=== PATIENT | female | born 1945 | race Caucasian/White ===

== ENCOUNTER 2016-05-30 11:59 | Outpatient (CLI) | payer MEDICARE | END 2016-05-30 12:00 | disposition home or self-care (01) | DX: N30.00 Acute cystitis without hematuria (principal) ==

== ENCOUNTER 2016-06-10 10:40 | Outpatient (CLI) | payer MEDICARE | END 2016-06-10 10:41 | disposition home or self-care (01) | DX: I10 Essential (primary) hypertension (principal); Z79.899 Other long term (current) drug therapy; C18.9 Malignant neoplasm of colon, unspecified; E78.2 Mixed hyperlipidemia ==

== ENCOUNTER 2016-06-14 11:52 | Outpatient (CLI) | payer MEDICARE | END 2016-06-14 11:53 | disposition home or self-care (01) | DX: R31.9 Hematuria, unspecified (principal) ==

== ENCOUNTER 2016-08-09 10:23 | Outpatient (CLI) | payer MEDICARE | END 2016-08-09 23:59 | DX: R19.7 Diarrhea, unspecified (principal) ==

== ENCOUNTER 2016-08-12 08:00 | Outpatient (CLI) | payer MEDICARE | END 2016-08-12 23:59 | disposition home or self-care (01) | DX: R19.7 Diarrhea, unspecified (principal) ==

== ENCOUNTER 2017-06-20 08:07 | Outpatient (CLI) | payer MEDICARE ==
[2017-06-20 13:58] LABS: BASOPHILS % (AUTO) 0.8 %; EOSINOPHILS # (AUTO) 0.1 10^3/uL (0.0-0.7); EOSINOPHILS % (AUTO) 2.5 %; HGB - HEMOGLOBIN 13.3 g/dL (12.0-16.0); LYMPHOCYTES # (AUTO) 1.2 10^3/uL (1.5-3.5); LYMPHOCYTES % (AUTO) 26.7 %; MEAN CORPUSCULAR HEMOGLOBIN 30.6 pg (27.0-31.0); MEAN CORPUSCULAR HGB CONC 33.3 g/dL (32.0-36.0); MEAN CORPUSCULAR VOLUME 91.8 fL (81.0-99.0); MEAN PLATELET VOLUME 8.5 fL (7.9-10.8); MONOCYTES # (AUTO) 0.4 10^3/uL (0.0-1.0); MONOCYTES % (AUTO) 9.7 %; NEUTROPHILS # (AUTO) 2.7 10^3/uL (1.5-6.6); NEUTROPHILS % (AUTO) 60.3 %; PLT - PLATELET COUNT 293 10^3/uL (130-450); RED BLOOD COUNT 4.34 10^6/uL (4.20-5.40); RED CELL DISTRIBUTION WIDTH 13.7 % (12.0-15.0); WHITE BLOOD COUNT 4.5 x10^3/uL (4.8-10.8)
[2017-06-20 14:13] LABS: ALBUMIN 4.2 g/dL (3.2-5.5); ALBUMIN/GLOBULIN RATIO 1.3 (1.0-2.2); ALKALINE PHOSPHATASE 40 IU/L (42-121); ALT ALANINE AMINOTRANSFERASE 23 IU/L (10-60); AST ASPARTATE AMINOTRANSFERASE 21 IU/L (10-42); BILIRUBIN,TOTAL 0.6 mg/dL (0.2-1.0); BUN - BLOOD UREA NITROGEN 15 mg/dL (6-20); CALCIUM 9.5 mg/dL (8.5-10.3); CARBON DIOXIDE - CO2 26 mmol/L (21-32); CHLORIDE 105 mmol/L (101-111); CHOLESTEROL 172 mg/dL; CREATININE 0.8 mg/dL (0.4-1.0); GFR - MDRD 71 (>89); GLUCOSE 86 mg/dL (70-100); HDL CHOLESTEROL 84 mg/dL; LDL CHOLESTEROL,CALCULATED 72 mg/dL; LDL/HDL RATIO 0.9 (<4.4); SODIUM 140 mmol/L (135-145); TOTAL PROTEIN 7.4 g/dL (6.7-8.2); VLDL CHOLESTEROL 16 mg/dL
[2017-06-21 15:03] LABS: HEPATITIS C ANTIBODY NON-REACTIVE (NON-REACTIVE)
== END 2017-06-20 08:08 | disposition home or self-care (01) ==
LOC: LAB.R 08:07
PROVIDERS: ATTEND Internal Medicine
DX: G46.4 Cerebellar stroke syndrome (principal); K20.9 Esophagitis, unspecified; C18.9 Malignant neoplasm of colon, unspecified; I10 Essential (primary) hypertension; E78.5 Hyperlipidemia, unspecified; Z79.899 Other long term (current) drug therapy; Z72.89 Other problems related to lifestyle
CPT/HCPCS: 80053; 80061; 82378; 83721; 84443; 85025; 86803

== ENCOUNTER 2017-06-27 11:06 | Outpatient (CLI) | payer MEDICARE ==
--- NOTE | 2017-06-27 18:14 | XRAY Report ---
DATE OF SERVICE: 06/27/2017 RIGHT HIP AND PELVIS: 06/27/2017 CLINICAL INDICATION: Hip pain. FINDINGS: Frontal view of the hips and pelvis and frogleg lateral view of the right hip demonstrate mild osteoarthritis. There is no evidence of fracture or dislocation. No radiopaque foreign body is seen in the soft tissues. IMPRESSION: MILD OSTEOARTHRITIS. TD: 06/27/2017 18:12
--- NOTE | 2017-06-27 18:15 | XRAY Report ---
DATE OF SERVICE: 06/27/2017 THREE VIEW LUMBAR SPINE: 06/27/2017 CLINICAL INDICATION: Hip pain. FINDINGS: AP, lateral, coned down views of the lumbar spine demonstrate moderate degenerative disk and facet disease. Disk space narrowing is worst at L4-L5. There is no evidence of compression fracture. The bowel gas pattern appears normal. IMPRESSION: MODERATE DEGENERATIVE CHANGES. TD: 06/27/2017 18:14
== END 2017-06-27 11:07 | disposition home or self-care (01) ==
LOC: DI 11:06
PROVIDERS: ATTEND Internal Medicine
DX: M16.11 Unilateral primary osteoarthritis, right hip (principal); M51.36 Other intervertebral disc degeneration, lumbar region; M47.896 Other spondylosis, lumbar region
CPT/HCPCS: 72100

== ENCOUNTER 2019-02-21 06:46 | Day surgery (SDC) | payer MEDICARE ==
[2019-02-21] MEDS ORDERED: fentaNYL 250 MCG/5 ML VIAL IVP ONE (06:47)
[2019-02-21] MEDS ORDERED: MIDAZOLAM 2 MG/2 ML VIAL IVP ONE (06:47)
[2019-02-21] MEDS ORDERED: LACTATED RINGERS 1,000 ML IV ONE (07:36)
[2019-02-21 09:40] VITALS: BP 115/68
== END 2019-02-21 06:47 | disposition home or self-care (01) ==
LOC: SDS 06:46
PROVIDERS: ATTEND Surgery
PROC: 0DJD8ZZ Inspection of Lower Intestinal Tract, Via Natural or Artificial Opening Endoscopic (ICD-10-PCS; principal; 2019-02-21 08:15)
DX: Z12.11 Encounter for screening for malignant neoplasm of colon (principal); K57.30 Diverticulosis of large intestine without perforation or abscess without bleeding; K64.8 Other hemorrhoids; Z85.038 Personal history of other malignant neoplasm of large intestine; Z90.49 Acquired absence of other specified parts of digestive tract; I10 Essential (primary) hypertension; E78.5 Hyperlipidemia, unspecified; K20.9 Esophagitis, unspecified; Z86.73 Personal history of transient ischemic attack (TIA), and cerebral infarction without residual deficits; Z79.82 Long term (current) use of aspirin
CPT/HCPCS: G0105; J3010; J7120

== ENCOUNTER 2020-04-05 13:28 | Emergency (ER) | payer MEDICARE ==
--- NOTE | 2020-04-05 13:52 | ED Physician Documentation ---
PD HPI CHEST PAIN - Stated complaint Stated Complaint: FEELS FAINT - Chief complaint Chief Complaint: Cardiac - History obtained from History obtained from: Patient (74-year-old woman Presents with episodic lightheadedness for several days. She says she notices that her blood pressure goes down when she notices it generally with a diastolic in the 50s. She feels lightheaded and weak. Also 3 days ago she had about a 20-minute episode of sharp chest pain radiat) Review of Systems Ten Systems: 10 systems reviewed and negative Constitutional: reports: Fatigue. denies: Fever, Chills Cardiac: reports: Chest pain / pressure, Palpitations. denies: Pedal edema, Calf pain Respiratory: denies: Dyspnea, Cough PD PAST MEDICAL HISTORY - Past Medical History Cardiovascular: Hypertension Respiratory: None Endocrine/Autoimmune: None GI: GERD, Colon polyps, Other : None HEENT: None Psych: None Musculoskeletal: None Derm: None - Past Surgical History General: Cholecystectomy, Bowel surgery, Colonoscopy, EGD HEENT: Tonsil/Adenoidectomy - Present Medications Home Medications: Ambulatory Orders Medication Instructions Recorded Confirmed Aspirin [Aspirin EC] 1 tab ORAL DAILY 02/20/19 02/21/19 lisinopriL [Lisinopril] 10 mg ORAL DAILY 02/20/19 02/21/19 - Allergies Allergies/Adverse Reactions: Allergies Allergy/AdvReac Type Severity Reaction Status Date / Time No Known Drug Allergies Allergy Verified 04/05/20 13:44 PD ED PE NORMAL - Vitals Vital signs reviewed: Yes - General General: Alert and oriented X 3, No acute distress, Well developed/nourished - HEENT HEENT: PERRL, EOMI - Neck Neck: Supple, no meningeal sign, No bony TTP - Cardiac Cardiac: RRR, No murmur - Respiratory Respiratory: No respiratory distress, Clear bilaterally - Abdomen Abdomen: Non tender - Back Back: No CVA TTP, No spinal TTP - Extremities Extremities: No edema, No calf tenderness / cord - Neuro Neuro: Alert and oriented X 3, Normal speech Results - Vitals Vitals: Vital Signs - 24 hr 04/05/20 04/05/20 13:36 13:49 Temperature 36.6 C 36.6 C Heart Rate 63 64 Respiratory 15 14 Rate Blood Pressure 141/78 H 141/78 H O2 Saturation 97 98 Oxygen O2 Source Room air - EKG (time done) 1336 Rate: Rate (enter#) (73) Rhythm: NSR [place]: Normal Intervals: Normal GA QRS: Normal Ischemia: Normal ST segments Computer interpretation: Agree with computer - Labs Labs: Laboratory Tests 04/05/20 04/05/20 04/05/20 14:28 14:28 14:28 WBC 6.9 RBC 4.26 Hgb 13.3 Hct 40.7 MCV 95.5 MCH 31.2 H MCHC 32.7 RDW 12.8 Plt Count 271 MPV 9.6 Neut # (Auto) 5.2 Lymph # (Auto) 1.1 L [place] # (Auto) 0.5 Eos # (Auto) 0.1 Baso # (Auto) 0.0 Absolute Nucleated RBC 0.00 Nucleated RBC % 0.0 Sodium 137 Potassium 4.2 Chloride 103 Carbon Dioxide 24 Anion Gap 10.0 BUN 17 Creatinine 0.8 Estimated GFR (MDRD) 70 L Glucose 89 Calcium 8.9 Magnesium 2.1 Total Bilirubin 0.7 AST 18 ALT 20 Alkaline Phosphatase 39 L Troponin I High Sens 2.9 Total Protein 7.3 Albumin 4.0 Globulin 3.3 Albumin/Globulin Ratio 1.2 Lipase 112 H PD MEDICAL DECISION MAKING - ED course ED course: 74-year-old woman with episodic low blood pressures and lightheadedness, work-up today demonstrates normal EKG, normal chest x-ray. Labs only notable for very mild elevation in lipase. This was discussed with the patient. She has been having epigastric pain daily for a month. We discussed either advanced imaging today or ceasing her lisinopril and following up for recheck and she opted for the latter. Departure - Departure Disposition: 01 Home, Self Care Condition: Good Record reviewed to determine appropriate education?: Yes Instructions: ED Palpitations, ED Near Syncope Unkn Comments: As discussed, the only pertinent positive finding today was a very mildly elevated lipase at 112. Since you have already had your gallbladder out, it is not likely to be from gallstones. This could be from the lisinopril, which may also be causing your lightheadedness. I recommend you stop the lisinopril for now and follow-up with your doctor in about a week. I would recommend that your doctor consider rechecking the lipase level, and if persistently elevated off the lisinopril to consider imaging focusing on the pancreas and/or upper endoscopy. Return if worsening. Given your cardiac complaints, also reasonable to consider echocardiography and Holter monitoring. No abnormal findings on your heart were found today. If unable to get in with your primary care physician in a timely manner, consider going to the [facility] walk-in clinic in [place] for repeat labs: [facility] [address] [address] CLINIC HOURS: Open 7 days a week: Monday - Monday 7:00 am to 5:30 pm Monday 9:00 am to 4:00 pm Sundays Noon to 4:00 pm
--- NOTE | 2020-04-05 14:35 | XRAY Report ---
PROCEDURE: Chest 1 View X-Ray INDICATIONS: Chest Pain TECHNIQUE: One view of the chest was acquired. COMPARISON: 5.27.16 FINDINGS: Surgical changes and devices: None. Lungs and pleura: No pleural effusions or pneumothorax. Lungs are clear. Mediastinum: Mediastinal contours appear normal. Heart size is normal. Bones and chest wall: No suspicious bony lesions. Overlying soft tissues appear unremarkable. IMPRESSION: No acute process. Reviewed by: Bladimir Ahumada MD on 04/05/2020 1:33 PM [facility] Approved by: Bladimir Ahumada MD on 04/05/2020 1:33 PM [facility] Station ID: [id number]
[2020-04-05 14:38] LABS: BASOPHILS % (AUTO) 0.4 %; EOSINOPHILS # (AUTO) 0.1 10^3/uL (0.0-0.7); EOSINOPHILS % (AUTO) 1.4 %; HGB - HEMOGLOBIN 13.3 g/dL (12.0-16.0); LYMPHOCYTES # (AUTO) 1.1 10^3/uL (1.5-3.5); LYMPHOCYTES % (AUTO) 15.2 %; MEAN CORPUSCULAR HEMOGLOBIN 31.2 pg (27.0-31.0); MEAN CORPUSCULAR HGB CONC 32.7 g/dL (32.0-36.0); MEAN CORPUSCULAR VOLUME 95.5 fL (81.0-99.0); MEAN PLATELET VOLUME 9.6 fL (7.9-10.8); MONOCYTES # (AUTO) 0.5 10^3/uL (0.0-1.0); MONOCYTES % (AUTO) 7.5 %; NEUTROPHILS # (AUTO) 5.2 10^3/uL (1.5-6.6); NEUTROPHILS % (AUTO) 75.1 %; PLT - PLATELET COUNT 271 10^3/uL (130-450); RED BLOOD COUNT 4.26 10^6/uL (4.20-5.40); RED CELL DISTRIBUTION WIDTH 12.8 % (12.0-15.0); WHITE BLOOD COUNT 6.9 x10^3/uL (4.8-10.8)
[2020-04-05 14:53] LABS: ALBUMIN/GLOBULIN RATIO 1.2 (1.0-2.2); BILIRUBIN,TOTAL 0.7 mg/dL (0.2-1.0); CALCIUM 8.9 mg/dL (8.5-10.3); CREATININE 0.8 mg/dL (0.4-1.0); MAGNESIUM 2.1 mg/dL (1.7-2.8); TOTAL PROTEIN 7.3 g/dL (6.7-8.2)
[2020-04-05 15:20] VITALS: BP 136/75
== END 2020-04-05 15:28 | disposition home or self-care (01) ==
LOC: ED 13:28
DX: R42 Dizziness and giddiness (principal); I95.89 Other hypotension; R00.2 Palpitations; I10 Essential (primary) hypertension; Z79.82 Long term (current) use of aspirin; R74.8 Abnormal levels of other serum enzymes
CPT/HCPCS: 36415; 71045; 80053; 83690; 83735; 84484; 85025; 93005; 99284

== ENCOUNTER 2020-06-19 13:30 | Outpatient (CLI) | payer MEDICARE ==
--- NOTE | 2020-06-19 16:56 | Ultrasound Report ---
PROCEDURE: Pelvic w/Transvaginal INDICATIONS: ENDOMETRIAL POLYP TECHNIQUE: Real-time scanning was performed of the pelvic organs, with image documentation. Additional endovagi nal scanning was necessary due to incomplete visualization of the adnexal and endometrial structures by transabdominal scanning. COMPARISON: None. FINDINGS: No pathologic free abdominal or pelvic fluid. Uterus: Uterus is normal in size at 7.2 x 3.5 x 4.3 cm. The endometrium measures 12 mm in combined thickness. Mild appearance of heterogeneous vascularity is noted. In addition, there is a 6 x 5 x 6 mm focus of heterogeneous echogenicity at the region of the cervix/lower uterine segment. Ovaries: Right ovary measures 1.1 x 0.9 x 1.4 cm, volume 0.8 cc. Left ovary is not visualized. IMPRESSION: 1. Endometrium is thickened for postmenopausal patient. Further evaluation is recommended, as neoplas m cannot be excluded. 2. Subcentimeter focus of heterogeneous echogenicity within the lower uterine segment/cervix. It is n ot well visualized. This could represent a small polyp or fibroid. However, interval follow-up of thi s region is recommended secondary to poor characterization. If clinical concern persists, MRI may be obtained for further evaluation. Reviewed by: Lovely Adam MD on 06/19/2020 4:55 PM PST Approved by: Lovely Adam MD on 06/19/2020 4:55 PM PST Station ID: [id number]
== END 2020-06-19 13:31 | disposition home or self-care (01) ==
LOC: DI 13:30
PROVIDERS: ATTEND Obstetrics & Gynecology
DX: R93.89 Abnormal findings on diagnostic imaging of other specified body structures (principal)

== ENCOUNTER 2020-07-01 13:17 | Outpatient (CLI) | payer MEDICARE ==
--- NOTE | 2020-07-03 10:45 | Mammography Report ---
BILATERAL DIGITAL SCREENING MAMMOGRAM 3D/2D: 07/01/2020 CLINICAL: Routine screening. Comparison is made to exams dated: 07/25/2016 mammogram, 05/27/2014 mammogram, 05/16/2013 mammogram, and 05/16/2013 mammogram - [facility]. The tissue of both breasts is pred ominantly fatty. There is a biopsy clip in the right breast. There also are biopsy clips in the left breast. No significant masses, calcifications, or other findings are seen in either breast. There has been no significant interval change. IMPRESSION: NEGATIVE There is no mammographic evidence of malignancy. A 1 year screening mammogram is recommended. This exam was interpreted at Station ID: [id number]. NOTE: For mammograms, a report in lay terms will be sent to the patient. Approximately 15% of breast malignancies will not be visualized mammographically. In the management of a palpable breast mass, a negative mammogram must not discourage biopsy of a clinically suspicious lesion. Electronically Signed By: Ady Diana acr/penrad:07/01/2020 15:25:33 ACR BI-RADS Category 1: Negative 3341F PARENCHYMAL PATTERN: (F) - The breast(s) demonstrate(s) diffuse fatty replacement. BI-RADS CATEGORY: (1) - 1 RECOMMENDATION: (ANNUAL) - Recommend routine annual screening mammography. [id number] 1 year screening LATERALITY: (B)
== END 2020-07-01 13:18 | disposition home or self-care (01) ==
LOC: DI 13:17
DX: Z12.31 Encounter for screening mammogram for malignant neoplasm of breast (principal)

== ENCOUNTER 2020-07-20 08:00 | Outpatient (CLI) | payer MEDICARE ==
[2020-07-20 11:17] LABS: BASOPHILS % (AUTO) 0.3 %; EOSINOPHILS # (AUTO) 0.1 10^3/uL (0.0-0.7); HCT - HEMATOCRIT 41.7 % (37.0-47.0); HGB - HEMOGLOBIN 13.2 g/dL (12.0-16.0); LYMPHOCYTES # (AUTO) 1.4 10^3/uL (1.5-3.5); LYMPHOCYTES % (AUTO) 15.4 %; MEAN CORPUSCULAR HEMOGLOBIN 30.1 pg (27.0-31.0); MEAN CORPUSCULAR HGB CONC 31.7 g/dL (32.0-36.0); MEAN PLATELET VOLUME 9.5 fL (7.9-10.8); MONOCYTES # (AUTO) 0.8 10^3/uL (0.0-1.0); MONOCYTES % (AUTO) 9.1 %; NEUTROPHILS # (AUTO) 6.5 10^3/uL (1.5-6.6); NEUTROPHILS % (AUTO) 73.7 %; PLT - PLATELET COUNT 271 10^3/uL (130-450); RED BLOOD COUNT 4.39 10^6/uL (4.20-5.40); RED CELL DISTRIBUTION WIDTH 14.3 % (12.0-15.0); WHITE BLOOD COUNT 8.8 x10^3/uL (4.8-10.8)
== END 2020-07-20 23:59 | disposition home or self-care (01) ==
LOC: LAB 08:00
PROVIDERS: ATTEND Obstetrics & Gynecology
DX: Z01.812 Encounter for preprocedural laboratory examination (principal); Z20.822 Contact with and (suspected) exposure to COVID-19; N84.0 Polyp of corpus uteri
CPT/HCPCS: 36415; 85025; U0004

== ENCOUNTER 2020-07-23 08:48 | Day surgery (SDC) | payer MEDICARE ==
[~2020-07-23 08:48] MED LIST: ACETAMINOPHEN 1,000 MG/100 ML 100 ML IV ONE; CELECOXIB 100 MG CAPSULE PO ONE; GABAPENTIN 400 MG CAPSULE ONE; LACTATED RINGERS 1,000 ML IV ONE
--- NOTE | 2020-07-23 10:27 | ANESTHESIA ---
Pre-Anesthesia VS, & Labs - Diagnosis endometrial polyp - Procedure hysterscopy, d&C Vital Signs: Temp Pulse Resp BP Pulse Ox 36.3 C L 64 16 150/80 H 100 07/23/20 08:53 07/23/20 08:53 07/23/20 08:53 07/23/20 08:53 07/23/20 08:53 Height: 5 ft 8 in Weight (kg): 83.1 kg Body Mass Index: 27.8 BMI Classification: Overweight - NPO >8 hours - Is Patient ?: No - Lab Results Current Lab Results: Laboratory Tests 07/23/20 09:21: POC Whole Bld Glucose 89 Home Medications and Allergies Home Medications: Ambulatory Orders Multivitamin 1 each PO DAILY 07/15/20 Aspirin [Aspirin EC] 1 tab ORAL DAILY 02/20/19 Multivitamin 1 each PO DAILY 07/15/20 Allergies/Adverse Reactions: Allergies Allergy/AdvReac Type Severity Reaction Status Date / Time No Known Drug Allergies Allergy Verified 07/23/20 09:36 Anes History & Medical History - Anesthetic History Anesthesia Complications: reports: No previous complications, Slow wake-up - Medical History Cardiovascular: reports: Hypertension, Arrhythmia Pulmonary: reports: None Gastrointestinal: reports: Colon polyps, Other Urinary: reports: None 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, TIA Musculoskeletal: reports: None Endocrine/Autoimmune: reports: None Blood Disorders: reports: None Skin: reports: None Smoking Status: Never smoker Psychosocial: reports: No issues indicated - Surgical History General: reports: Cholecystectomy, Bowel surgery, Colonoscopy Eyes Ears Nose Throat (EENT): reports: Tonsil/Adenoidectomy Exam General: Alert, Oriented x3, Cooperative, No acute distress Dental: WNL Mouth Openin Fingerbreadth Neck Mobility: Normal Mallampati classification: III Thyromental Distance: 4-6 cm Mental/Cognitive Status: Alert/Oriented X3, Normal for patient Plan Anesthesia Type: MAC Consent for Procedure(s) Verified and Reviewed: Yes Code Status: Attempt Resuscitation ASA classification: 2-Mild systemic disease Is this case an emergency?: No
[2020-07-23] MEDS ORDERED: SILVER NITRATE APPLICATOR TOP ONE (10:34)
[2020-07-23] MEDS ORDERED: LIDOCAINE 2%-EPI 1:100000 20 ML MDV ONE (10:34)
[2020-07-23] MEDS ORDERED: BUPIVACAINE 0.25% PF 30 ML VIAL ONE (10:34)
[2020-07-23] MEDS ORDERED: fentaNYL 100 MCG/2 ML VIAL ONE (10:50)
[2020-07-23] MEDS ORDERED: PROPOFOL 200 MG/20 ML VIAL IVP ONE ×2 (10:50→11:12)
[2020-07-23] MEDS ORDERED: BUPIVACAINE 0.25% PF 30 ML VIAL SUBQ ONE (11:13)
[2020-07-23] MEDS ORDERED: LIDOCAINE 2%-EPI 1:100000 20 ML MDV SUBQ ONE (11:13)
[2020-07-23] MEDS ORDERED: LACTATED RINGERS 1,000 ML IV ONE (11:39)
[2020-07-23] MEDS ORDERED: oxyCODONE 5 MG TABLET PO PRN (11:44)
[2020-07-23 11:46] VITALS: BP 127/68
--- NOTE | 2020-07-23 14:47 | ANESTHESIA POST OP EVALUATION ---
Anesthesia Post Eval - Post Anesthesia Eval Vitals: Last Vital Signs Temp 36.0 C L 07/23/20 11:45 Pulse 61 07/23/20 11:45 Resp 18 07/23/20 11:45 BP 127/68 07/23/20 11:45 Pulse Ox 100 07/23/20 11:45 CV Function Including HR & BP: positive: Stable Pain Control: positive: Satisfactory Nausea & Vomiting: positive: Negative Mental Status: positive: Baseline Respiratory Status: Airway Patent Hydration Status: Satisfactory Anesthesia Complications: positive: None
--- NOTE | 2020-07-24 12:09 | OPERATIVE REPORT ---
Operative Report - General Procedure Date: 07/23/20 Planned Procedure: Hysteroscopy D&C with polypectomy Pre-Op Diagnosis: Endometrial polyp in us Procedure Performed: Hysteroscopy D&C with polypectomy Post Op Diagnosis: Same - Procedure Note Primary Surgeon: Dominique Ulloa MD Anesthesia Technique: MAC, Regional block Pathology: Uterine contents IV Fluids (mL): 1,100 Estimated Blood Loss (mL): 5 Urine Output (mL): 50 Indications: Patient is a 75 yo female with thickened endometrium and polyps present on pelvic ultrasound. Findings: Multiple uterine polyps with largest in right fundus, a smaller in the left area, and one in the cervical canal. Complications: None - Other Other Information/Narrative: Risks benefits and alternatives to the procedure were reviewed. Consent was again confirmed. Patient was taken to the operating room where she underwent general anesthesia. She was positioned in dorsolithotomy position with legs resting in yellowfin stirrups. She was prepped and draped in the usual sterile fashion. Preoperative antibiotics were not indicated. Preoperative checklist was performed. Exam under anesthesia was performed. Speculum was placed in the vagina and the cervix was visualized. Single-tooth tenaculum was placed at the anterior cervical lip. Paracervical block was administered using a total of 20 cc of 1% lidocaine mixed with bupivicaine 0.25% with epinephrine was injected at the 4:00 and 8:00 positions lateral to the portio of the cervix. The cervical os was serially dilated with Hegar dilators to accommodate the caliber of the diagnostic hysteroscope. Uterus sounded to 6 cm. The hysteroscope was inserted and findings were noted as above. The hysteroscopic morcellator was inserted through the operative port. The intrauterine polyps were morcellated under direct visualization. Uterine cavity was smooth at close of the procedure. Hysteroscope was removed. Sharp curettage D&C was performed with sharp curettage. All instruments were removed from the uterus. Tenaculum was removed. Tenaculum sites were noted to be hemostatic. All instruments were removed from the vagina. Procedure was well-tolerated without complication. Fluid deficit: 230 cc
== END 2020-07-23 08:49 | disposition home or self-care (01) ==
LOC: SDS 08:48
PROVIDERS: ATTEND Obstetrics & Gynecology
PROC: 0UDB7ZZ Extraction of Endometrium, Via Natural or Artificial Opening (ICD-10-PCS; 2020-07-23)
PROC: 0UB98ZZ Excision of Uterus, Via Natural or Artificial Opening Endoscopic (ICD-10-PCS; principal; 2020-07-23 10:00)
DX: N84.0 Polyp of corpus uteri (principal); R93.89 Abnormal findings on diagnostic imaging of other specified body structures; I10 Essential (primary) hypertension; Z86.73 Personal history of transient ischemic attack (TIA), and cerebral infarction without residual deficits; Z85.038 Personal history of other malignant neoplasm of large intestine; E66.3 Overweight; Z68.27 Body mass index [BMI] 27.0-27.9, adult
CPT/HCPCS: 58558; A9270; J0131; J7120

== ENCOUNTER 2021-01-11 16:05 | Outpatient (CLI) | payer MEDICARE | END 2021-01-11 16:06 | disposition home or self-care (01) | LOC: COV 16:05 | PROVIDERS: ATTEND Family Medicine | DX: R05 Cough (principal); R68.83 Chills (without fever); R07.0 Pain in throat; R09.81 Nasal congestion; J34.89 Other specified disorders of nose and nasal sinuses; Z20.822 Contact with and (suspected) exposure to COVID-19 ==

== ENCOUNTER 2021-05-24 08:00 | Outpatient (CLI) | payer MEDICARE | END 2021-05-24 23:59 | LOC: LAB.R 08:00 | PROVIDERS: ATTEND Internal Medicine | DX: L98.499 Non-pressure chronic ulcer of skin of other sites with unspecified severity (principal) | CPT/HCPCS: 87070; 87205 ==

== ENCOUNTER 2021-11-09 08:00 | Outpatient (CLI) | payer MEDICARE ==
[2021-11-09 16:31] LABS: BILIRUBIN,URINE NEGATIVE (NEGATIVE); GLUCOSE, URINE (UA) NEGATIVE (NEGATIVE); KETONES,URINE (UA) NEGATIVE (NEGATIVE); LEUKOCYTE ESTERASE, URINE SMALL (NEGATIVE); NITRITE,URINE NEGATIVE (NEGATIVE); OCCULT BLOOD,URINE SMALL (NEGATIVE); PH,URINE 7.5 PH (5.0-7.5); PROTEIN,URINE NEGATIVE (NEGATIVE); UROBILINOGEN,URINE 0.2 (NORMAL) E.U./dL (NORMAL)
[2021-11-09 16:38] LABS: CLARITY,URINE HAZY (CLEAR); WBC CLUMPS,URINE PRESENT; WBC,URINE >25 /HPF (0-5)
[2021-11-09 16:39] LABS: BACTERIA,URINE Many /HPF (None Seen); SQUAMOUS EPITHELIAL CELL,UR FEW Squamous (<= Few)
== END 2021-11-09 23:59 | disposition home or self-care (01) ==
LOC: LAB.R 08:00
PROVIDERS: ATTEND Internal Medicine
DX: R39.9 Unspecified symptoms and signs involving the genitourinary system (principal)
CPT/HCPCS: 81001; 87086; 87181

== ENCOUNTER 2022-01-27 09:34 | Outpatient (CLI) | payer MEDICARE ==
--- NOTE | 2022-01-27 12:02 | MRI Report ---
PROCEDURE: Knee LT W/O INDICATIONS: LEFT KNEE PAIN TECHNIQUE: Noncontrast sagittal PD fast spin echo and T2 fast spin echo with fat saturation, sagittal 3-D gradie nt sequence with fat saturation; coronal T1 spin echo and PD fast spin echo with fat saturation, and axial PD fast spin echo with fat saturation through the knee. COMPARISON: None. FINDINGS: Image quality: Excellent. Menisci: Medial extrusion of the medial meniscus is present. There is truncation of the free edge of the medial meniscal body, indicating radial tearing. There is linear horizontal and oblique high sign al intensity within the inner, middle, and peripheral thirds of the posterior horn medial meniscus, d emonstrating superior and inferior articular surface extension, indicating complex tearing. Lateral m eniscus is intact. Cruciate ligaments: The anterior and posterior cruciate ligaments appear intact. Medial structures: The medial collateral ligament appears intact. Visualized portions of the pes ans erinus tendons appear normal. No abnormal bursal fluid. Lateral structures: The lateral collateral ligament, long and short heads of the biceps femoris tend on appear intact. The popliteus tendon appears normal. Iliotibial band appears normal. Anterior structures: The quadriceps and patellar tendons appear intact. Mild T2 signal elevation wi thin the quadriceps tendon at the patellar insertion site. Patellar alignment is normal. No femoral trochlear dysplasia or ventral trochlear prominence. No edema in the infrapatellar fat pad. Bones and cartilage: No bone marrow contusions or fractures. Mild ill-defined T2 signal elevation wi thin the mid and posterior weightbearing aspect of the medial femoral condyle. Mild tricompartmental periarticular osteophyte formation. Severe articular cartilage loss diffusely overlies the weightbear ing aspects of the medial femoral condyle and medial tibial plateau. Moderate articular cartilage los s diffusely overlies the weightbearing aspects of the lateral femoral condyle and lateral tibial plat eau. Articular cartilage fibrillation overlies the lateral patellar facet. Joint space: There is a small knee joint effusion and a small ganglion cyst along the popliteus. No De La Garza's cyst. Normal appearing synovial plicae are incidentally noted. IMPRESSION: 1. Tricompartmental osteoarthritis with associated articular cartilage loss. 2. Complex tearing of the medial meniscus. 3. Knee joint effusion. Small ganglion cyst along the popliteus. Reviewed by: Bladimir Ahumada MD on 01/27/2022 12:01 PM PDT Approved by: Bladimir Ahumada MD on 01/27/2022 12:01 PM PDT Station ID: [id number]
== END 2022-01-27 09:35 | disposition home or self-care (01) ==
LOC: DI 09:34
PROVIDERS: ATTEND Internal Medicine
DX: M17.12 Unilateral primary osteoarthritis, left knee (principal); S83.232A Complex tear of medial meniscus, current injury, left knee, initial encounter; M67.462 Ganglion, left knee

== ENCOUNTER 2023-12-07 12:38 | Outpatient (CLI) | payer MEDICARE ==
[2023-12-07 12:49] LABS: BASOPHILS % (AUTO) 0.3 %; EOSINOPHILS # (AUTO) 0.1 10^3/uL (0.0-0.7); EOSINOPHILS % (AUTO) 0.9 %; HCT - HEMATOCRIT 43.5 % (37.0-47.0); HGB - HEMOGLOBIN 13.8 g/dL (12.0-16.0); LYMPHOCYTES # (AUTO) 1.2 10^3/uL (1.5-3.5); LYMPHOCYTES % (AUTO) 10.7 %; MEAN CORPUSCULAR HEMOGLOBIN 29.6 pg (27.0-31.0); MEAN CORPUSCULAR HGB CONC 31.7 g/dL (32.0-36.0); MEAN CORPUSCULAR VOLUME 93.1 fL (81.0-99.0); MEAN PLATELET VOLUME 9.7 fL (7.9-10.8); MONOCYTES # (AUTO) 0.7 10^3/uL (0.0-1.0); MONOCYTES % (AUTO) 6.2 %; NEUTROPHILS # (AUTO) 9.3 10^3/uL (1.5-6.6); NEUTROPHILS % (AUTO) 81.6 %; PLT - PLATELET COUNT 260 10^3/uL (130-450); RED BLOOD COUNT 4.67 10^6/uL (4.20-5.40); RED CELL DISTRIBUTION WIDTH 13.1 % (12.0-15.0); WHITE BLOOD COUNT 11.4 x10^3/uL (4.8-10.8)
== END 2023-12-07 12:39 | disposition home or self-care (01) ==
LOC: LAB 12:38
PROVIDERS: ATTEND Internal Medicine
DX: R79.89 Other specified abnormal findings of blood chemistry (principal)
CPT/HCPCS: 36415; 85025

== ENCOUNTER 2024-01-12 09:24 | Outpatient (CLI) | payer MEDICARE ==
[2024-01-12 09:41] LABS: BASOPHILS % (AUTO) 0.4 %; EOSINOPHILS # (AUTO) 0.1 10^3/uL (0.0-0.7); EOSINOPHILS % (AUTO) 1.9 %; HCT - HEMATOCRIT 42.1 % (37.0-47.0); HGB - HEMOGLOBIN 13.6 g/dL (12.0-16.0); LYMPHOCYTES # (AUTO) 1.2 10^3/uL (1.5-3.5); LYMPHOCYTES % (AUTO) 18.2 %; MEAN CORPUSCULAR HEMOGLOBIN 29.7 pg (27.0-31.0); MEAN CORPUSCULAR HGB CONC 32.3 g/dL (32.0-36.0); MEAN CORPUSCULAR VOLUME 91.9 fL (81.0-99.0); MEAN PLATELET VOLUME 9.5 fL (7.9-10.8); MONOCYTES # (AUTO) 0.5 10^3/uL (0.0-1.0); NEUTROPHILS # (AUTO) 4.9 10^3/uL (1.5-6.6); NEUTROPHILS % (AUTO) 71.9 %; PLT - PLATELET COUNT 286 10^3/uL (130-450); RED BLOOD COUNT 4.58 10^6/uL (4.20-5.40); RED CELL DISTRIBUTION WIDTH 13.1 % (12.0-15.0); WHITE BLOOD COUNT 6.8 x10^3/uL (4.8-10.8)
[2024-01-12 09:45] LABS: INR 1.1 (0.8-1.2)
[2024-01-12 09:57] LABS: CALCIUM 9.4 mg/dL (8.5-10.3); CREATININE 0.7 mg/dL (0.6-1.3); POTASSIUM 4.3 mmol/L (3.5-4.5)
== END 2024-01-12 09:25 | disposition home or self-care (01) ==
LOC: LAB 09:24
PROVIDERS: ATTEND Internal Medicine
DX: I48.0 Paroxysmal atrial fibrillation (principal)
CPT/HCPCS: 36415; 80048; 85025; 85610